=== PATIENT | female | born 1955 | race Caucasian/White ===

== ENCOUNTER 2025-04-10 15:42 | Outpatient (CLI) | payer MEDICARE, SELFPAY ==
--- NOTE | ~2025-04-10 | CT_ITS ---
EXAMINATION: CT brain wo kirit, 04/10/2025 16:00 CDT HISTORY: HEADACHE COMPARISON: No comparisons available. Technique: Axial images obtained of the brain without contrast. One or more of the following dose reduction techniques were used: automated exposure control, adjustment of the mA and/or kV according to patient size, use of iterative reconstruction technique. Findings: No acute infarct or parenchymal hemorrhage. No abnormal mass or mass effect. No midline shift. No extra-axial fluid collections. No hydrocephalus. Mastoid air cells unremarkable. Sinuses and orbits unremarkable. No acute fracture. No significant facial or scalp soft tissue swelling evident. No radiopaque foreign body is seen. Impression: 1.No acute intracranial abnormality. Reviewed, dictated and finalized at location P. Impression: 1.No acute intracranial abnormality.
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
--- OUTSIDE RECORDS SUMMARY | 2025-04-10 16:40 | XMS_ITS | Continuity of Care Document ---
Author Organization [facility] ([place] Address [address] [place] [address] Care Team Providers Care Operator Cavity Pump Name Role Phone JOANIE WILKINS Primary Care Provider Assessment Encounter Date Assessment Date Assessment LastModified by Organization Details LastModified Time 04/09/2025 04/09/2025 1. Recurrent headache with history [...] Total time spent: 20 minutes (Tracked by BringIt) [email or web address] Not available 04/09/2025 13:43:24 Plan of Treatment [...] Imaging CT, head, w/o contrast 2024 025 [facility], [address] [place], [address], Ph 162 [id number] 04/10/2025 15:58:25 Medication Orders ketorolac 60 mg/2 mL intramusc ular solution 2024 025 [email or web address] [facility][id number], [address] [place], [address], 04/09/2025 13:39:23 Patient TargetsNo targets recorded. Patient InstructionsNo instructions recorded. Reason for Referral None Reported. 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 291187318806 9104 Active 2023 Evy dempsey [facility], [facility] 4 13:51:01 Hyperlipid emia 02663520 Active 2023 Evy dempsey [facility] 4 13:51:17 Diabetes mellitus 40304068 Active 2023 Evy dempsey [facility], [facility] 4 13:51:27 Skin lesion 03711060 Active 2023 right leg Evy dempsey [facility], [facility] 4 13:52:16 Basal cell carcinoma of lower extremity 902084767 Active 2023 Evy dempsey null, [facility] 4 13:53:00 Migraine 77250815 Active 2023 Joanie Wilkins MD [address] [place] [address], [phone], [facility] 5 13:12:12 Motion sickness 26784383 Active 2023 Abiolaart Gagnon null, [facility] 4 05:41:59 Fracture of seventh thoracic vertebra 852872443 Active 2023 [facility] 4 06:41:36 Closed fracture sacrum 984632204 Active 2023 [facility] 4 06:42:31 Lentiginos is 466784361 Active 2023 [facility] 4 09:41:39 Senile angioma 1536233 Active 2023 Amanda Morales [facility] 4 09:41:47 Inflamed seborrheic keratosis 239284557 Active 2023 [facility] 4 09:42:50 Benign neoplasm of soft tissue 59299128 Active 2023 ARIA FENG MD [address] [place] [address], [phone], [facility] 4 09:52:49 Enthesopat hy 49828103 Active 2024 [facility] 5 15:08:45 Osteopenia 076356239 Active 2024 [facility] 5 15:09:23 Frequent headache 285278818 Active 2024 Joanie Wilkins MD [address] [place] [address], [phone], [facility] 5 13:12:06 Problem Notes None recorded. Procedures Surgical History Date Name Laterality Status Provider Name and Address Organization Details Recorded Time 02/06/20 Date of Last Mammogram completed Not Available Health Note 04/07/2024 20:27:18 Colonoscopy with biopsy completed Not Available Health Note 02/01/2024 14:51:37 Imaging Results None recorded. Procedure Notes None recorded. Medical Equipment None Reported. Allergies Allergen ID Allergen Name Allergen Category Reaction Reaction Severity Criticality Documentation Date Start Date Code Code System Note Provider Name and Address Organization Details Recorded Time 3856737 Demerol medicatio n Not available Not available Not available 07/19/20232020 71375 1 RxNorm Not Available [facility] 4 04:03:36 3687665 Topamax medicatio n other Not available Not available 04/09/2025 30758 3 RxNorm psych osphyllis Garnett [facility] 5 12:44:15 416655 tramadol Not available nausea vomiting Not available Not available Not available 07/17/20232020 40775 RxNorm Layne Natarajan [facility] 4 12:34:31 Medications Name Sig Start Date [...] 1APPLICAT ORFUL INTRAVAGI DMITRY AT BEDTIME NIGHTLY [id number] THEN USE 1/4 APPLICATO R TWICE WEEKLY [...] and Address Organization Details Last Updated DateTime 166.37 cm 27.1 kg/m2 32343.9 g 97.2 [degF] 18 /min 96 % 96 % 57 /min 114/84 mm[Hg] Brynn Garnett [facility] 12:46:00 Social History Question Answer Notes LastModified by Organizat ion Details LastModified Time Tobacco Smoking Status Never Smoker Brynn Garnett [facility] 04/09/2025 12:44:44 Do You Have An Advance Directive? No [email or web address] Information not available 02/01/2024 What Is Your Level Of Caffeine Consumption? Moderate [email or web address] Information not available 02/01/2024 How Many Times Per Week Do You Exercise? 1-2 Times Per Week [email or web address] Information not available 02/01/2024 Do You Have A Medical Power Of Electric Accounting Machine Operator? No [email or web address] Information not available 02/01/2024 What Was The Date Of Your Most Recent Tobacco Screening? 04/09/2025 [email or web address] Information not available 04/09/2025 What Is Your Relationship Status? [email or web address] Information not available 02/01/2024 Sex: Unknown Functional Status Question Answer Note LastModified by Organizat ion Details LastModified Time How many times per [...] available 2023 14:51:36 Medical History Condition Response High Blood Pressure N COPD N Depression N Anxiety Disorder N Arthritis Y Cancer N Stroke N Fibromyalgia N Kidney Disease N Attention-deficit Hyperactivity Disorder N Thyroid Problems N Anemia N Diabetes Y Bleeding Disorder N Hyperlipidemia N Asthma N Seizures N Heart Disease N Osteoporosis Y Gynecological History Statement/Question Response If Post Menopausal, Age at Menopause 48 Age at Menarche 14 Date of Last Mammogram 02/06/2024 Obstetrics History GPAL:G 0 P 0 0 0 0 Immunizations Vaccine Type Date Status Note Provider Nam e and Address Organization Details Recorded Time zoster recombinant 3 completed Layne Rosa Isela [facility] 2024 12:34:12 zoster recombinant 3 completed Layne Rosa Isela [facility] 2024 12:34:12 Influenza, high-dose, quadrivalent, PF 2 completed Layne Rosa Isela [facility] 2024 12:34:12 Influenza, high-dose, quadrivalent, PF 0 completed Layne Rosa Isela [facility] 2024 12:34:12 Influenza, high-dose, quadrivalent, PF 3 completed Layne Rosa Isela [facility] 2024 12:34:12 COVID-19, mRNA, LNP-S, PF, 100 mcg/0.5mL dose or 50 mcg/0.25mL dose 1 completed Layne Rosa Isela [facility] 2024 12:34:12 COVID-19, mRNA, LNP-S, PF, 30 mcg/0.3 mL dose 1 completed [facility] 20[facility] 12:34:12 COVID-19, mRNA, LNP-S, PF, 30 mcg/0.3 mL dose 1 completed [facility] 2024 12:34:12 COVID-19, mRNA, LNP-S, PF, 30 mcg/0.3 mL dose, essie-sucrose 2 completed [facility] 2024 12:34:12 COVID-19, mRNA, LNP-S, bivalent, PF, 30 mcg/0.3 mL dose 2 completed [facility] 2024 12:34:12 COVID-19, mRNA, LNP-S, PF, essie-sucrose, 30 mcg/0.3 mL 3 completed [facility] 2024 12:34:12 pneumococcal polysaccharide PPV23 7 completed [facility] 2024 12:34:12 Tdap 9 completed Layne Rosa Isela [facility] 2024 12:34:12 Pneumococcal conjugate PCV 13 6 completed [facility] 2024 12:34:12 zoster live 7 completed [facility] 2024 12:34:12 Influenza, high-dose, trivalent, PF 4 completed Not Available [facility] 04/09/2025 12:27:49 COVID-19, mRNA, LNP-S, PF, essie-sucrose, 30 mcg/0.3 mL 4 completed Not Available [facility] 04/09/2025 12:27:49 Past Encounters Encounter ID Performer Location Encounter Start Date Encounter Closed Date Diagnosis/Indication Diagnosis SNOMED-CT Code Diagnosis ICD10 Code Diagnosis IMO Codes Diagnosis Note [id number] GELA BELTRAN PA-C [facility]) [address] [place] [address] 04/07/2025 09:28:59 04/07/2025 13:13:50 Migraine 85120030 G43.909 [id number] Joanie Wilkins MD [facility]) [address] [place] [address] 04/09/2025 12:27:25 04/09/2025 14:08:46 Frequent headache 171779361 R51.9 47275012 Migraine 37528823 G43.90 9 35116 Health Concerns Section Related Observation LastModified by Organization Detai ls LastModified Time None Recorded Concern Status LastModified by Organization Details LastModified Time None Recorded Payers Encounter Date Sequence Insurance Name Policy Number Policy Sargent Covered Member ID Sargent Member ID Guarantor Name 04/09/2025 1 [employer] - TOTAL RETIREE ADVANTAGE [facility] [place] (MEDICARE REPLACEMENT/ ADVANTAGE - PPO) [id number] Qiana Randall [id number] Qiana Randall Notes Date Note Type Note Provider Name and Address Organization Details Recorded Time 04/09/2025 text/html 70-year-old woman with long-standing history of [...] her baseline. Joanie Wilkins MD [address] [place] [address], [phone], [facility] 04/09/2025 13:44:20 OBGyn Episode No OBEpisode recorded.
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
== END 2025-04-10 15:43 | disposition home or self-care (01) ==
LOC: CHSIMG 15:51
DX: R51.9 Headache, unspecified (principal)
CPT/HCPCS: 70450